=== PATIENT | male | born 1990 | race Caucasian/White ===

== ENCOUNTER 2018-11-25 13:07 | Emergency (ER) | payer MEDICARE, OTHER ==
[2018-11-25 13:18] VITALS: BP 163/82; RESP 18
[2018-11-25] MEDS ORDERED: IPRATROPIUM-ALBUTEROL 3 ML NEB INHALATION STA ×2 (13:59→15:04)
[2018-11-25] MEDS ORDERED: DEXAMETHASONE 4 MG TAB PO STA (13:59)
--- NOTE | 2018-11-25 14:07 | ED ---
General Adult HPI - General Chief complaint: Upper Respiratory Infection Stated complaint: Chest tightness, cough Source: patient, RN notes reviewed Mode of arrival: ambulatory Limitations: no limitations - History of Present Illness Initial comments: Patient is a 27-year-old male with history of asthma and smoking who presents to the emergency department with complaint of nonproductive cough for a day and a half. He also complains of sore throat, congestion and runny nose. He reports he is out of his albuterol inhaler and needs a refill. Patient denies any recent fever, chills, chest pain, back pain, abdominal pain, nausea or vomiting, numbness or tingling, headaches or visual changes, or any other complaints. - Related Data Previous Rx's Medication Instructions Recorded Azithromycin [Zithromax Z-pack] 0 mg PO DIRECTED #6 tab 12/30/15 Cyclobenzaprine [Flexeril] 10 mg PO TID #14 tab 12/30/15 Hydrocodone/Acetaminophen [[place] 1 each PO Q6HR PRN #20 tab 12/30/15 5-325] Albuterol Inhaler [Ventolin Hfa 1 - 2 puff INHALATION Q4-6H PRN #1 11/25/18 Inhaler] inhaler Allergies Allergy/AdvReac Type Severity Reaction Status Date / Time ibuprofen [From Motrin] Allergy Unknown Verified 12/30/15 00:30 Review of Systems ROS Statement: Those systems with pertinent positive or pertinent negative responses have been documented in the HPI. ROS Other: All systems not noted in ROS Statement are negative. Past Medical History Past Medical History: Asthma Additional Past Medical History / Comment(s): Mutiple MRSA infections History of Any Multi-Drug Resistant Organisms: MRSA Date of last positivie culture/infection: 2013 MDRO Source:: Arm Past Surgical History: No Surgical Hx Reported Additional Past Surgical History / Comment(s): Incison and drainage in the ED Past Anesthesia/Blood Transfusion Reactions: No Reported Reaction Past Psychological History: No Psychological Hx Reported Smoking Status: Current every day smoker Past Alcohol Use History: Occasional Past Drug Use History: None Reported General Exam Limitations: no limitations General appearance: alert, in no apparent distress Head exam: Present: atraumatic, normocephalic Eye exam: Present: normal appearance, PERRL ENT exam: Present: normal oropharynx, TM's normal bilaterally, normal external ear exam Neck exam: Present: normal inspection. Absent: lymphadenopathy Respiratory exam: Present: normal lung sounds bilaterally Cardiovascular Exam: Present: regular rate, normal rhythm Neurological exam: Present: alert, oriented X3 Psychiatric exam: Present: normal affect, normal mood Skin exam: Present: warm, dry Course Vital Signs 11/25/18 11/25/18 11/25/18 13:14 14:20 14:29 Temperature 98.3 F Pulse Rate 93 92 92 Respiratory 18 Rate Blood Pressure 163/82 O2 Sat by Pulse 98 Oximetry 11/25/18 11/25/18 11/25/18 15:49 15:58 16:56 Temperature 97.5 F L Pulse Rate 65 71 68 Respiratory 18 Rate Blood Pressure O2 Sat by Pulse 100 Oximetry Medical Decision Making - Medical Decision Making Influenza A and B are negative. Rapid Strep is negative. Ordered dexamethasone. Patient reports improvement with Duoneb treatment x2. Will prescribe albuterol inhaler. Advised to quit smoking. Case discussed in detail with attending physician Dr. Brizuela. - Lab Data Lab Results 11/25/18 Range/Units 14:30 Influenza Type A RNA Not Detected (Not Detectd) Influenza Type B (PCR) Not Detected (Not Detectd) Group A Strep Rapid Negative (Negative) Disposition Clinical Impression: Upper respiratory infection Disposition: HOME SELF-CARE Condition: Good Instructions: Upper Respiratory Infection (ED) Additional Instructions: Follow-up with your PCP in 1 to 2 days. Return to the emergency department if your symptoms worsen or any other concerns. Prescriptions: Albuterol Inhaler [Ventolin Hfa Inhaler] 1 - 2 puff INHALATION Q4-6H PRN #1 inhaler PRN Reason: Shortness Of Breath Is patient prescribed a controlled substance at d/c from ED?: No Referrals: Levi Ospina DO [Primary Care Provider] - 1-2 days Chiquita Shepherd MD [STAFF PHYSICIAN] - 1-2 days Time of Disposition: 16:46
[2018-11-25 16:58] VITALS: PULSE 68; TEMP 97.5
== END 2018-11-25 16:56 | disposition home or self-care (01) ==
LOC: EC 13:07
DX: J06.9 Acute upper respiratory infection, unspecified (principal); F17.200 Nicotine dependence, unspecified, uncomplicated; Z86.14 Personal history of Methicillin resistant Staphylococcus aureus infection; Z88.6 Allergy status to analgesic agent
CPT/HCPCS: 94640 ×2; 87081; 87430; 87502; 99283; J8540

== ENCOUNTER 2019-08-09 20:43 | Emergency (ER) | payer MEDICARE, OTHER ==
[2019-08-09 20:59] VITALS: PULSE 78; RESP 18
[2019-08-09] MEDS ORDERED: Acetaminophen-Codeine 300-30mg TAB PO STA (21:22)
--- NOTE | 2019-08-09 21:42 | XR ---
EXAMINATION TYPE: XR ankle complete LT DATE OF EXAM: 08/09/2019 COMPARISON: NONE HISTORY: Foot pain and ankle pain TECHNIQUE: 3 views FINDINGS: Ankle mortise is anatomic. I see no fracture nor dislocation. Joint spaces are fairly otto l. IMPRESSION: Negative left ankle exam.
--- NOTE | 2019-08-09 21:43 | XR ---
EXAMINATION TYPE: XR foot complete LT DATE OF EXAM: 08/09/2019 COMPARISON: NONE HISTORY: Foot pain TECHNIQUE: 3 views FINDINGS: Metatarsals are intact. I see no fracture nor dislocation. Joint spaces are normal. IMPRESSION: Negative left foot exam.
[2019-08-09 22:03] VITALS: BP 136/72; TEMP 98
--- NOTE | 2019-08-09 22:35 | ED ---
General Adult HPI - General Chief complaint: Extremity Injury, Lower Stated complaint: Fall-Foot Injury Time Seen by Provider: 08/09/19 21:04 Source: patient, family Mode of arrival: wheelchair Limitations: no limitations - History of Present Illness Initial comments: Patient is 28-year-old male presenting to the emergency department with a chief complaint of left ankle pain. Patient reports he jumped off a boat 2 hours ago and landed on the ground which caused him to roll his left ankle. Patient reports the pain is a 10 and throbbing. Patient reports the pain is exacerbated with plantar flexion, dorsiflexion, inversion. Patient is unable to bear any weight. Patient denies taking medication to alleviate the symptoms. Patient denies any numbness or tingling. Patient does report edema but no skin discoloration or ecchymosis. Patient denies any knee pain. - Related Data Previous Rx's Medication Instructions Recorded Azithromycin [Zithromax Z-pack] 0 mg PO DIRECTED #6 tab 12/30/15 Cyclobenzaprine [Flexeril] 10 mg PO TID #14 tab 12/30/15 Hydrocodone/Acetaminophen [[place] 1 each PO Q6HR PRN #20 tab 12/30/15 5-325] Albuterol Inhaler [Ventolin Hfa 1 - 2 puff INHALATION Q4-6H PRN #1 11/25/18 Inhaler] inhaler Allergies Allergy/AdvReac Type Severity Reaction Status Date / Time ibuprofen [From Motrin] Allergy Unknown Verified 08/09/19 20:59 Review of Systems ROS Statement: Those systems with pertinent positive or pertinent negative responses have been documented in the HPI. ROS Other: All systems not noted in ROS Statement are negative. Past Medical History Past Medical History: Asthma Additional Past Medical History / Comment(s): Mutiple MRSA infections History of Any Multi-Drug Resistant Organisms: MRSA Date of last positivie culture/infection: 2013 MDRO Source:: Arm Past Surgical History: No Surgical Hx Reported Additional Past Surgical History / Comment(s): Incison and drainage in the ED Past Anesthesia/Blood Transfusion Reactions: No Reported Reaction Past Psychological History: No Psychological Hx Reported Smoking Status: Current every day smoker Past Alcohol Use History: Occasional Past Drug Use History: None Reported General Exam Limitations: no limitations General appearance: alert, in no apparent distress Head exam: Present: atraumatic, normocephalic, normal inspection Eye exam: Present: normal appearance, PERRL, EOMI Pupils: Present: normal accommodation ENT exam: Present: normal exam, normal oropharynx, mucous membranes moist, TM's normal bilaterally, normal external ear exam Neck exam: Present: normal inspection, full ROM Respiratory exam: Present: normal lung sounds bilaterally Cardiovascular Exam: Present: regular rate, normal rhythm, normal heart sounds Extremities exam: Present: tenderness (Medial malleolus tenderness with mild midfoot tenderness. No fifth metatarsal tenderness.), normal capillary refill, joint swelling, other (+2 dorsalis pedis and posterior tibialis bilaterally.). Absent: normal inspection (My left ankle edema), full ROM (Limited range of motion with plantar dorsiflexion.), calf tenderness Back exam: Present: normal inspection, full ROM Neurological exam: Present: alert, oriented X3 Psychiatric exam: Present: normal affect, normal mood Skin exam: Present: warm, intact, normal color Course Vital Signs 08/09/19 08/09/19 20:55 22:01 Temperature 98.1 F 98 F Pulse Rate 78 78 Respiratory 18 18 Rate Blood Pressure 114/72 136/72 O2 Sat by Pulse 100 100 Oximetry Medical Decision Making - Medical Decision Making patient is a 28-year-old male presenting to emergency Department with a chief complaint of ankle pain. 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 Patient does have ankle swelling and limited range of motion due to pain. Anterior drawer test is negative. X-ray is negative. At this point suspect the patient has suffered an ankle sprain. Patient given Tylenol 3 for pain. She'll be discharged with a Tylenol 3 starter pack. Patient advised to to not drive or operate heavy machinery when taking the medication. Patient vised to follow with orthopedics or physical therapy if symptoms not improved within 2-3 days. Strict return parameters were thoroughly discussed the patient is understanding and agreeable. Patient advised to apply ice compresses 10-15 minutes every 3 hours to minimize the symptoms. Case discussed with physician. Disposition Clinical Impression: Sprain of ankle, left Disposition: HOME SELF-CARE Condition: Stable Instructions (If sedation given, give patient instructions): Ankle Sprain (ED) Additional Instructions: Please follow up with orthopedics or physical therapy if symptoms not improving 2-[address] heavy machinery when taking the Tylenol 3. Apply ice compresses multiple times a day for 10-15 minutes to minimize symptoms. Please return to emergency department is symptoms worsen. Is patient prescribed a controlled substance at d/c from ED?: No Referrals: Blanquita Fernando MD [Primary Care Provider] - 1-2 days Andi Rodriguez MD [STAFF PHYSICIAN] - 1-2 days Time of Disposition: 22:35
[2019-08-09] MEDS ORDERED: ACET/COD 300 MG/30 MG STARTER PACK 6 TAB BTL PO STA (22:36)
== END 2019-08-09 22:45 | disposition home or self-care (01) ==
LOC: EC 20:43
DX: S93.402A Sprain of unspecified ligament of left ankle, initial encounter (principal); F17.200 Nicotine dependence, unspecified, uncomplicated; Z88.6 Allergy status to analgesic agent; W16.712A Jumping or diving from boat striking water surface causing other injury, initial encounter; Y92.814 Boat as the place of occurrence of the external cause
CPT/HCPCS: 99283